=== PATIENT | female | born 1995 | race Caucasian/White ===

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

== ENCOUNTER 2017-01-18 14:26 | Emergency (ER) | payer OTHER ==
[~2017-01-18 14:26] MED LIST changes: +AMPI500C8 PO; +TERC0.8C VAGINAL
--- NOTE | 2017-01-18 15:16 | PD ---
HPI Chief Complaint Contractions Date Seen: Jan 18, 2017 Time Seen: 15:11 Travel History International Travel<30 Days: No Contact w/Intl Traveler<30Days: No Known Affected Area: No History of Present Illness HPI 21-year-old 2 para 0 at 40 weeks and 1 day gestation who comes in with complaint of contractions. She denies leakage of fluid, bleeding, decreased movement. History Past Medical History Medical History: Denies Significant Hx Obstetric History Obstetric History 1 [facility] which [facility] been [facility]complicated. Past Surgical History Narrative Surgical D&C Family History Family History: Negative Social History Alcohol Use: No Tobacco Use: No Substance Abuse: No Allergies-Medications (Allergen,Severity, Reaction): Coded Allergies: No Known Allergies (Verified , 01/17/17) Home Meds Active Scripts Terconazole Vaginal Cream (Terconazole Vaginal Cream) 0.8 % Cream, 1 APPL VAGINAL HS for Fungal Infection, #20 GM 0 Refills For 3 days. Prov:Jacque Lim 01/14/17 Terconazole Vaginal Cream (Terconazole Vaginal Cream) 0.8 % Cream, 1 APPL VAGINAL HS for Fungal Infection, #20 GM 0 Refills For 3 days. Prov:Jacque LimP 01/11/17 Ampicillin (Ampicillin) 500 Mg Cap, 500 MG PO QID for Infection for 10 Days, # 40 CAP 0 Refills Prov:Jacque LimP 01/03/17 Mv & Min W/Fe Carbony (Aquilino One 27-0.8-200 mg) 1 Cap Cap, 1 CAP PO DAILY, #60 BOTTLE 5 Refills Prov:Simi Flores CNM [facility] 07/26/16 Review of Systems Except as stated in HPI: all other systems reviewed are Neg Physical Exam Narrative GENERAL: Well-nourished, well-developed patient. SKIN: Warm and dry. HEAD: Normocephalic and atraumatic. EYES: No scleral icterus. No injection or drainage. ENT: No nasal drainage noted. Mucous membranes pink. Airway patent. NECK: Supple, trachea midline. No JVD. CARDIOVASCULAR: Regular rate and rhythm without murmurs, gallops, or rubs. RESPIRATORY: Breath sounds equal bilaterally. No accessory muscle use. ABDOMEN/GI: Abdomen soft, non-tender, bowel sounds present, no rebound, no guarding Gravid to [-] weeks size Fundal Height: [-] GENITOURINARY: External Genitalia: intact and normal in appearance BUS glands: [-] Cervix: [Posterior-] Dilatation: [-Fingertip] Effacement: [80-] Station: [--1] Presentation: [-Vertex] Membranes: [intact Uterine Contractions: [Mild irregular-] FHT's: Category: [-] Baseline: [-] Reactive: [Yes-] Variability: [-] Decels: [-] EXTREMITIES: No cyanosis or edema. BACK: Nontender without obvious deformity. No CVA tenderness. NEUROLOGICAL: Awake and alert. Motor and sensory grossly within normal limits. Five out of 5 muscle strength in all muscle groups. Normal speech. Data Data Vital Signs Reviewed: Yes Group B Strep: Positive MDM Medical Record Reviewed: Yes Narrative Course / MDM Assessment: 40 week intrauterine with contractions, not in labor Plan: Labor precautions were reviewed with the patient. She will follow up for routine care or return to the ED should labor start. Diagnosis Diagnosis: Primary Impression: 40 weeks gestation of Additional Impression: Irregular contractions Disposition: 01 DISCHARGE HOME Mal Dejesus MD Jan 18, 2017 15:16
== END 2017-01-18 15:44 | disposition home or self-care (01) ==
LOC: HOBED 14:26
DX: O47.1 False labor at or after 37 completed weeks of gestation (principal); Z3A.40 40 weeks gestation of pregnancy
CPT/HCPCS: 59025

== ENCOUNTER 2017-04-22 09:54 | Emergency (ER) | payer MEDICAID, OTHER ==
[~2017-04-22] VITALS: Ht 170.2 cm; Wt 62.0 kg
[~2017-04-22 09:54] MED LIST changes: -AMPI500C8 PO; +MEDR150I IM; -TERC0.8C VAGINAL
[2017-04-22 09:56] VITALS: BP 131/74; PULSE 91; RESP 14; TEMP 98.9; O2SAT 100
--- NOTE | 2017-04-22 10:37 | PD ---
HPI Chief Complaint: Complaint Time Seen by Provider: 10:14 Travel History International Travel<30 days: No Contact w/Intl Traveler<30days: No Traveled to known affect area: No History of Present Illness HPI 21-year-old female presents the emergency department with 4 day history of urinary tract infection symptoms. She states urinary frequency, burning, and mild right-sided flank pain. She denies vaginal discharge other than her normal period is current. The patient denies . She denies nausea or vomiting but has had chills. Her pain is 4 out of 10. She has no known drug allergies. PFSH Past Medical History ADHD: Yes Blood Disorders: No Depression: Yes Cardiovascular Problems: No Chemotherapy: No Diabetes: No Diminished Hearing: No Genitourinary: Yes ("SOMETHING WITH MY URINE TUBE A YOUNG CHILD" SURGERY CONSIDERED THEN) Implanted Vascular Access Dvce: No Insomnia: Yes Psychiatric: Yes (ADHD) Respiratory: No Immunizations Current: Yes (HPV VACCINATION:2016) Renal Failure: No Seizures: No Sickle Cell Disease: No ?: Not LMP: 04/19/17 : 1 Para: 0 Miscarriage: 0 : 1 Ovarian Cysts: Yes Dilation and Curettage (D&C): Yes Past Surgical History Gynecologic Surgery: Yes (D/C) Social History Alcohol Use: No Tobacco Use: No Substance Use: No Allergies-Medications (Allergen,Severity, Reaction): Coded Allergies: No Known Allergies (Verified Adverse Reaction, Unknown, 04/22/17) Reported Meds & Prescriptions Reported Meds & Active Scripts Active Pyridium (Phenazopyridine HCl) 100 Mg Tab 100 Mg PO Q8H PRN 3 Days Keflex (Cephalexin) 500 Mg Cap 500 Mg PO Q8H 7 Days Review of Systems Except as stated in HPI: all other systems reviewed are Neg General / Constitutional: Positive: Chills, No: Fever Eyes: No: Visual changes HENT: No: Headaches Cardiovascular: No: Chest Pain or Discomfort Respiratory: No: Shortness of Breath Gastrointestinal: No: Nausea, Vomiting, Diarrhea, Abdominal Pain Genitourinary: Positive: Urgency, Frequency, Dysuria, Flank Pain (currently menstruating.), Vaginal Bleeding, No: Pelvic Pain Musculoskeletal: No: Pain Skin: No Rash Neurologic: No: Weakness Psychiatric: No: Depression Endocrine: No: Polydipsia Hematologic/Lymphatic: No: Easy Bruising Physical Exam Narrative GENERAL: Patient appears in no acute distress. SKIN: Warm and dry. Normal color. Normal turgor. HEAD: Atraumatic. Normocephalic. EYES: Pupils equal and round. No scleral icterus. No injection or drainage. ENT: No nasal bleeding or discharge. Mucous membranes pink and moist. Pharynx is clear. Airways. NECK: Trachea midline. Supple nontender. CARDIOVASCULAR: Regular rate and rhythm. RESPIRATORY: No accessory muscle use. Clear to auscultation. Breath sounds equal bilaterally. GASTROINTESTINAL: Abdomen soft, non-tender, nondistended. Hepatic and splenic margins not palpable. Mild right-sided flank pain to percussion. MUSCULOSKELETAL: Extremities without clubbing, cyanosis, or edema. No obvious deformities. NEUROLOGICAL: Awake and alert. No obvious cranial nerve deficits. Motor grossly within normal limits. Five out of 5 muscle strength in the arms and legs. Normal speech. PSYCHIATRIC: Appropriate mood and affect; insight and judgment normal. Data Data Last Documented VS Vital Signs Date Time Temp Pulse Resp B/P (MAP) Pulse Ox O2 Delivery O2 Flow Rate FiO2 04/22/17 09:56 98.9 91 14 131/74 (93) 100 Orders Orders Urinalysis - C+S If Indicated (04/22/17 10:13) Ed Urine Pregnancytest Poc (04/22/17 10:13) Urine Culture (04/22/17 10:18) Labs Laboratory Tests Test 04/22/17 10:18 Urine Color YELLOW Urine Turbidity HAZY Urine pH 6.5 Urine Specific [place] 1.019 Urine Protein 30 mg/dL Urine Glucose (UA) NEG mg/dL Urine Ketones NEG mg/dL Urine Occult Blood SMALL Urine Nitrite NEG Urine Bilirubin NEG Urine Urobilinogen LESS THAN 2.0 MG/DL Urine Leukocyte Esterase LARGE Urine RBC 18 /hpf Urine WBC /hpf Urine WBC Clumps FEW Urine Bacteria MOD /hpf Urine Mucus MOD /lpf Microscopic Urinalysis Comment CULTURE INDICATED MDM Medical Decision Making Medical Screen Exam Complete: Yes Emergency Medical Condition: Yes Differential Diagnosis Dysuria. Urinary frequency. Urinary tract infection. Narrative Course Patient is stable at time of exam. Urinalysis and urine is ordered. Urine is negative. Urinalysis very suggestive of UTI. Urine culture is pending. Patient is treated with Keflex 500 mg 3 times a day 7 days. Patient is given Pyridium 100 mg 3 times a day #9 She is to rest push fluids and follow-up as needed. Diagnosis Primary Impression: UTI (urinary tract infection) Qualified Codes: N30.01 - Acute cystitis with hematuria Referrals: Primary Care Physician Patient Instructions: Dysuria (ED), General Instructions Additional Instructions: Urine is negative. Urinalysis very suggestive of UTI. Urine culture is pending. Patient is treated with Keflex 500 mg 3 times a day 7 days. Patient is given Pyridium 100 mg 3 times a day #9 She is to rest push fluids and follow-up as needed. Med/Other Pt SpecificInfo: Prescription(s) given Scripts Phenazopyridine (Pyridium) 100 Mg Tab 100 MG PO Q8H Y for DYSURIA for 3 Days, #9 TAB 0 Refills Prov: Nohemi Saldivar MD 04/22/17 Cephalexin (Keflex) 500 Mg Cap 500 MG PO Q8H for Infection for 7 Days, #21 CAP 0 Refills Prov: Nohemi Saldivar MD 04/22/17 Disposition: 01 DISCHARGE HOME Condition: Stable Andi Molina Apr 22, 2017 10:37
[2017-04-22 10:55] LABS: BACTERIA, URINE MOD /hpf; BILIRUBIN, URINE NEG (NEG); BLOOD, URINE SMALL (NEG); GLUCOSE,URINE NEG (NEG); KETONE, URINE NEG (NEG); MUCUS URINE MOD /lpf (OCC); NITRITE,URINE NEG (NEG); PH, URINE 6.5 (5.0-8.5); URINE COLOR YELLOW (YELLW/STRAW); URINE LEUKOCYTE ESTERASE LARGE (NEG); WHITE BLOOD CELL CLUMPS FEW
[2017-04-22] MEDS ORDERED: PHEN0.4T PO (11:00)
[2017-04-22] MEDS ORDERED: CEPH-460 PO (11:00)
--- NOTE | 2017-04-22 11:06 | PD ---
Physical Exam Date Seen by Provider: Apr 22, 2017 Time Seen by Provider: 11:00 Narrative Patient presents with urinary symptoms. Data Data Last Documented VS Vital Signs Date Time Temp Pulse Resp B/P (MAP) Pulse Ox O2 Delivery O2 Flow Rate FiO2 04/22/17 09:56 98.9 91 14 131/74 (93) 100 Orders Orders Urinalysis - C+S If Indicated (04/22/17 10:13) Ed Urine Pregnancytest Poc (04/22/17 10:13) Urine Culture (04/22/17 10:18) Ed Discharge Order (04/22/17 11:02) Labs Laboratory Tests Test 04/22/17 10:18 Urine Color YELLOW Urine Turbidity HAZY Urine pH 6.5 Urine Specific [place] 1.019 Urine Protein 30 mg/dL Urine Glucose (UA) NEG mg/dL Urine Ketones NEG mg/dL Urine Occult Blood SMALL Urine Nitrite NEG Urine Bilirubin NEG Urine Urobilinogen LESS THAN 2.0 MG/DL Urine Leukocyte Esterase LARGE Urine RBC 18 /hpf Urine WBC /hpf Urine WBC Clumps FEW Urine Bacteria MOD /hpf Urine Mucus MOD /lpf Microscopic Urinalysis Comment CULTURE INDICATED MDM Supervised Visit with VICTOR MANUEL: Yes Narrative Course I, Dr. Saldivar, have reviewed the advance practice practitioner's documentation and am in agreement, met with the patient face to face, made the diagnosis, and the medical decision making was done by me. *My assessment and Findings: The patient looks well. Laboratory Tests Test 04/22/17 10:18 Urine Color YELLOW Urine Turbidity HAZY Urine pH 6.5 Urine Specific [place] 1.019 Urine Protein 30 mg/dL Urine Glucose (UA) NEG mg/dL Urine Ketones NEG mg/dL Urine Occult Blood SMALL Urine Nitrite NEG Urine Bilirubin NEG Urine Urobilinogen LESS THAN 2.0 MG/DL Urine Leukocyte Esterase LARGE Urine RBC 18 /hpf Urine WBC /hpf Urine WBC Clumps FEW Urine Bacteria MOD /hpf Urine Mucus MOD /lpf Microscopic Urinalysis Comment CULTURE INDICATED She'll be treated for urinary tract infection. Please see Jamil Molina PA-C's note for results of laboratory and radiographic evaluation, ED course, final diagnosis and disposition Diagnosis Primary Impression: UTI (urinary tract infection) Qualified Codes: N30.01 - Acute cystitis with hematuria Referrals: Primary Care Physician Patient Instructions: General Instructions, Dysuria (ED) Additional Instruction: Urine is negative. Urinalysis very suggestive of UTI. Urine culture is pending. Patient is treated with Keflex 500 mg 3 times a day 7 days. Patient is given Pyridium 100 mg 3 times a day #9 She is to rest push fluids and follow-up as needed. Scripts Phenazopyridine (Pyridium) 100 Mg Tab 100 MG PO Q8H Y for DYSURIA for 3 Days, #9 TAB 0 Refills Prov: Nohemi Saldivar MD 04/22/17 Cephalexin (Keflex) 500 Mg Cap 500 MG PO Q8H for Infection for 7 Days, #21 CAP 0 Refills Prov: Nohemi Saldivar MD 04/22/17 Disposition: 01 DISCHARGE HOME Condition: Stable Nohemi Saldivar MD Apr 22, 2017 11:05
== END 2017-04-22 11:10 | disposition home or self-care (01) ==
LOC: NEPD 09:54
DX: N30.01 Acute cystitis with hematuria (principal); B96.20 Unspecified Escherichia coli [E. coli] as the cause of diseases classified elsewhere
CPT/HCPCS: 81001; 84703; 87077; 87086; 87186; 99283

== ENCOUNTER 2017-07-14 03:16 | Emergency (ER) | payer MEDICAID, OTHER ==
[~2017-07-14] VITALS: Ht 170.2 cm; Wt 60.0 kg
[~2017-07-14 03:16] MED LIST changes: +CEPH-460 PO; -MEDR150I IM; +PHEN0.4T PO; -PRENCAP PO
[2017-07-14 03:23] VITALS: BP 121/70; PULSE 103; RESP 16; TEMP 98.4; O2SAT 99
[2017-07-14] MEDS ORDERED: DEXAMETHASONE SOD PHOS 4 MG/ML VIAL IM ONE (05:00)
--- NOTE | 2017-07-14 05:03 | PD ---
HPI Chief Complaint: ENT Complaint Time Seen by Provider: 04:37 Travel History International Travel<30 days: No Contact w/Intl Traveler<30days: No Traveled to known affect area: No History of Present Illness HPI 22-year-old female with no significant medical history presents emergency department for evaluation of sore throat worsening since yesterday morning. Patient has associated fever with body aches and chills. She feels as though her throat was swollen. She is able to swallow. Mild nausea without vomiting. Denies chance of . No other symptoms to report. PFSH Past Medical History ADHD: Yes Blood Disorders: No Depression: Yes Cardiovascular Problems: No Chemotherapy: No Diabetes: No Diminished Hearing: No Genitourinary: Yes ("SOMETHING WITH MY URINE TUBE A YOUNG CHILD" SURGERY CONSIDERED THEN) Implanted Vascular Access Dvce: No Insomnia: Yes Medical other: Yes (Frequent UTIs) Psychiatric: Yes (ADHD) Respiratory: No Immunizations Current: Yes (HPV VACCINATION:2016) Renal Failure: No Seizures: No Sickle Cell Disease: No Tetanus Vaccination: Unknown Influenza Vaccination: Yes ?: LMP: 05/20/2017 positive pregnacy test : 3 Para: 1 Miscarriage: 0 : 1 Ovarian Cysts: Yes Dilation and Curettage (D&C): Yes Past Surgical History Gynecologic Surgery: Yes (D/C) Social History Alcohol Use: No Tobacco Use: No Substance Use: No Allergies-Medications (Allergen,Severity, Reaction): Coded Allergies: No Known Allergies (Verified Adverse Reaction, Unknown, 07/14/17) Reported Meds & Prescriptions Reported Meds & Active Scripts Active Amoxicillin 875 Mg Tab 875 Mg PO BID 10 Days Review of Systems Except as stated in HPI: all other systems reviewed are Neg Physical Exam Narrative GENERAL: Well-nourished, well-developed female patient in no acute distress SKIN: Focused skin assessment warm/dry. HEAD: Normocephalic. EYES: No scleral icterus. No injection or drainage. ENT: Mucosa pink and moist. Pharynx with significant erythema, edema, and scattered exudate. No uvular edema. No uvular, palatal, or tonsillar deviation. Airway patent. Nasal turbinates appear normal without nasal blood, purulent drainage or septal hematoma. NECK: Supple, trachea midline. Anterior cervical lymphadenopathy. CARDIOVASCULAR: Regular rate and rhythm without murmurs, gallops, or rubs. RESPIRATORY: Breath sounds equal bilaterally. No accessory muscle use. GASTROINTESTINAL: Abdomen soft, non-tender, nondistended. MUSCULOSKELETAL: No cyanosis, or edema. BACK: Nontender without obvious deformity. No CVA tenderness. Data Data Last Documented VS Vital Signs Date Time Temp Pulse Resp B/P (MAP) Pulse Ox O2 Delivery O2 Flow Rate FiO2 07/14/17 03:23 98.4 103 16 121/70 (87) 99 Orders Orders Group A Rapid Strep Screen (07/14/17 04:49) Dexamethasone Inj (Decadron Inj) (07/14/17 05:00) Ed Discharge Order (07/14/17 05:35) MDM Medical Decision Making Medical Screen Exam Complete: Yes Emergency Medical Condition: Yes Medical Record Reviewed: Yes Differential Diagnosis Strep pharyngitis versus mono versus other viral pharyngitis versus allergies Narrative Course 22-year-old female presents emergency department for evaluation of sore throat since yesterday. Patient appears without distress. She does have significantly erythematous pharynx with scattered exudate. Strep screen is positive. Patient will be started on amoxicillin. She is counseled on care and encouraged follow-up with primary care provider. She agrees to return immediately with acute worsening symptoms. Diagnosis Primary Impression: Strep throat Referrals: Primary Care Physician Patient Instructions: General Instructions, Strep Throat (ED) Departure Forms: Tests/Procedures, Work Release Enter return to work date: Jul 16, 2017 Additional Instructions: Warm salt water gargles Tylenol or ibuprofen as directed on the package as needed for fever and/or pain Follow-up the primary care provider Avoid abrasive and acidic foods Return immediately with acute worsening symptoms Med/Other Pt SpecificInfo: Prescription(s) given Scripts Amoxicillin (Amoxicillin) 875 Mg Tab 875 MG PO BID for Infection for 10 Days, #20 TAB 0 Refills Prov: Amina Jain 07/14/17 Disposition: 01 DISCHARGE HOME Condition: Stable Amina Jain Jul 14, 2017 05:03
[2017-07-14] MEDS ORDERED: AMOX875T PO (05:36)
== END 2017-07-14 05:44 | disposition home or self-care (01) ==
LOC: NEPD 03:16
DX: J02.0 Streptococcal pharyngitis (principal); F90.9 Attention-deficit hyperactivity disorder, unspecified type; F32.9 Major depressive disorder, single episode, unspecified; G47.00 Insomnia, unspecified
CPT/HCPCS: 87880; 96372; 99283; J1100